=== PATIENT | male | born 1940 | race Caucasian/White ===

== ENCOUNTER → 2022-11-25 | Outpatient (CLI) | payer OTHER | END | disposition home or self-care (01) | LOC: PLD 07:36 → LAB SHORT 07:36 | DX: C44.712 Basal cell carcinoma of skin of right lower limb, including hip (principal); C44.719 Basal cell carcinoma of skin of left lower limb, including hip; C44.319 Basal cell carcinoma of skin of other parts of face | CPT/HCPCS: 88305 ==

== ENCOUNTER → 2024-09-22 | Outpatient (CLI) | payer OTHER ==
[2024-09-22 12:55] LABS: BASOPHILS ABSOLUTE AUTO 0.05 K/mm3 (0.00-0.23); BASOPHILS PERCENT AUTO 1 % (0-2); EOSINOPHILS PERCENT AUTO 2 % (0-6); Hematocrit 43.1 % (37.0-53.0); Hemoglobin 14.5 g/dL (13.5-17.5); IMMATURE GRAN ABSOLUTE AUTO 0.01 K/mm3 (0.00-0.10); IMMATURE GRAN PERCENT AUTO 0 % (0-1); LYMPHOCYTES ABSOLUTE AUTO 0.64 K/mm3 (0.84-5.20); LYMPHOCYTES PERCENT AUTO 10 % (21-46); MONOCYTES ABSOLUTE AUTO 0.56 K/mm3 (0.16-1.47); MONOCYTES PERCENT AUTO 9 % (4-13); Mean Corpuscular HGB 32.2 pg (26.0-34.0); Mean Corpuscular HGB Conc 33.6 g/dL (31.5-36.5); Mean Corpuscular Volume 96 fL (80-100); Mean Platelet Volume 10.3 fL (9.1-12.4); NEUTROPHILS ABSOLUTE AUTO 4.77 K/mm3 (1.96-9.15); NEUTROPHILS PERCENT AUTO 78 % (41-73); Platelet Count 150 K/mm3 (150-400); RDW Standard Deviation 48.9 fL (35.1-46.3); Red Blood Cell Count 4.51 M/mm3 (4.30-5.90); White Blood Cell Count 6.13 K/mm3 (4.00-11.30)
[2024-09-22 13:04] LABS: Albumin, Blood 3.1 g/dL (3.4-5.0); Albumin/Globulin Ratio 0.9 (0.8-1.8); Bilirubin, Total 1.8 mg/dL (0.1-1.0); Bun/Creatinine Ratio 20.4 (12.0-20.0); Calcium, Blood 8.6 mg/dL (8.5-10.1); Creatinine, Blood 0.93 mg/dL (0.60-1.20); Globulin, Blood 3.4 g/dL (2.2-4.0); Potassium, Blood 4.4 mmol/L (3.5-5.5); Total Protein, Blood 6.5 g/dL (6.4-8.2)
== END ==
LOC: LAB SHORT 12:51 → LAB 12:51
PROVIDERS: Physician Assistant
DX: R06.02 Shortness of breath (principal)
CPT/HCPCS: 80053; 83880; 85025

== ENCOUNTER 2024-09-24 14:50 | Emergency (ER) | payer OTHER ==
[~2024-09-24] VITALS: Ht 177.8 cm; Wt 81.7 kg
[2024-09-24 15:57] LABS: BASOPHILS ABSOLUTE AUTO 0.04 K/mm3 (0.00-0.23); BASOPHILS PERCENT AUTO 1 % (0-2); EOSINOPHILS ABSOLUTE AUTO 0.02 K/mm3 (0.00-0.68); EOSINOPHILS PERCENT AUTO 0 % (0-6); Hematocrit 45.2 % (37.0-53.0); Hemoglobin 15.4 g/dL (13.5-17.5); IMMATURE GRAN ABSOLUTE AUTO 0.02 K/mm3 (0.00-0.10); IMMATURE GRAN PERCENT AUTO 0 % (0-1); LYMPHOCYTES ABSOLUTE AUTO 0.73 K/mm3 (0.84-5.20); LYMPHOCYTES PERCENT AUTO 11 % (21-46); MONOCYTES ABSOLUTE AUTO 0.77 K/mm3 (0.16-1.47); MONOCYTES PERCENT AUTO 11 % (4-13); Mean Corpuscular HGB 32.9 pg (26.0-34.0); Mean Corpuscular HGB Conc 34.1 g/dL (31.5-36.5); Mean Corpuscular Volume 97 fL (80-100); Mean Platelet Volume 10.5 fL (9.1-12.4); NEUTROPHILS ABSOLUTE AUTO 5.28 K/mm3 (1.96-9.15); NEUTROPHILS PERCENT AUTO 77 % (41-73); Platelet Count 168 K/mm3 (150-400); RDW Coefficient Variation 14.1 % (11.7-14.2); RDW Standard Deviation 49.9 fL (35.1-46.3); Red Blood Cell Count 4.68 M/mm3 (4.30-5.90); White Blood Cell Count 6.86 K/mm3 (4.00-11.30)
[2024-09-24] MEDS ORDERED: CefTRIAXone Sodium 1,000 MG in NS 100 ML IV ONE (16:00)
[2024-09-24 16:30] LABS: Albumin, Blood 3.1 g/dL (3.4-5.0); Albumin/Globulin Ratio 0.9 (0.8-1.8); Bilirubin, Total 1.9 mg/dL (0.1-1.0); Bun/Creatinine Ratio 29.3 (12.0-20.0); Calcium, Blood 8.9 mg/dL (8.5-10.1); Creatinine, Blood 0.99 mg/dL (0.60-1.20); Globulin, Blood 3.4 g/dL (2.2-4.0); Potassium, Blood 4.7 mmol/L (3.5-5.5); Total Protein, Blood 6.5 g/dL (6.4-8.2)
[2024-09-24 16:31] LABS: Source, Urine Clean Catch
[2024-09-24 16:44] LABS: Appearance, Urine Clear (Clear); Bilirubin, Urine Neg (Neg); Blood, Urine 1+ (Neg); Color, Urine Yellow (P-Yellow); Glucose Qualitative, Urine Neg (Neg); Ketones, Urine Neg (Neg); Leukocyte Esterase, Urine Neg (Neg); Nitrite, Urine Neg (Neg); Protein, Urine 2+ (Neg); Specific Gravity, Urine 1.015 (1.003-1.022); Urobilinogen, Urine NORM (Normal)
[2024-09-24 16:48] LABS: Influenza A, PCR NEGATIVE (NEGATIVE); Influenza B, PCR NEGATIVE (NEGATIVE); Resp Syncytial Virus, PCR NEGATIVE (NEGATIVE); SARS-Cov-2 (COVID-19) PCR, MMC NEGATIVE (NEGATIVE)
[2024-09-24 16:52] LABS: Mucus Light (0-Heavy); White Blood Cells, Urine 0-2 /hpf (0-5)
[2024-09-24 16:53] LABS: Bacteria Few /hpf; Hyaline Casts 0-2 /lpf (0-2); Squamous Epithelial Cells Rare /hpf (Few)
[2024-09-24 20:37] VITALS: BP 122/93
== END 2024-09-24 20:38 | disposition home or self-care (01) ==
LOC: ER 14:50
PROVIDERS: Student in an Organized Health Care Education/Training Program
DX: R53.83 Other fatigue (principal); R06.00 Dyspnea, unspecified; R06.2 Wheezing; I50.9 Heart failure, unspecified; Z79.02 Long term (current) use of antithrombotics/antiplatelets
CPT/HCPCS: 0241U; 36415; 71046; 71260; 80053; 81001; 83605; 83690; 83880; 85025; 85379; 87040; 93005; 93010; 96365-59; 99285-25; J0696; Q9967

== ENCOUNTER 2024-09-27 15:12 | Inpatient (IN) | payer OTHER ==
[~2024-09-27] VITALS: Ht 177.8 cm; Wt 97.8 kg
[2024-09-27] MEDS ORDERED: FLU VACC TS2024-25(6MOS UP)/PF 45 MCG/0.5 ML SYRINGE IM SCH (16:45)
[2024-09-27 17:00] VITALS: BP 108/89
[2024-09-27] MEDS ORDERED: Carvedilol 3.125 MG Tab PO SCH (17:00)
[2024-09-27] MEDS ORDERED: Bumetanide 0.25 MG/ML 4ML ViaL IV SCH (17:00)
[2024-09-27] MEDS ORDERED: ASPI81CH PO ×2 (17:26)
[2024-09-27] MEDS ORDERED: ATORVASTATIN CA40 M1 PO ×2 (17:26)
[2024-09-27] MEDS ORDERED: OMEP20ER PO ×2 (17:28)
[2024-09-27] MEDS ORDERED: CLOP75 PO ×2 (17:29)
[2024-09-27] MEDS ORDERED: CARV3.125 PO ×2 (17:30)
[2024-09-27 18:09] LABS: Anion Gap 13 mmol/L (3-11); Blood Urea Nitrogen 40 mg/dL (8-24); Bun/Creatinine Ratio 34.2 (12.0-20.0); CO2, Blood 27 mmol/L (21-32); Calcium, Blood 8.8 mg/dL (8.5-10.1); Chloride, Blood 95 mmol/L (98-108); Creatinine, Blood 1.17 mg/dL (0.60-1.20); Glomerular Filtration Rate 61 (60-); Glucose, Blood 138 mg/dL (70-99); Magnesium, Blood 1.8 mg/dL (1.6-2.4); Phosphorus, Blood 4.3 mg/dL (2.5-4.9); Potassium, Blood 4.2 mmol/L (3.5-5.5); Sodium, Blood 131 mmol/L (136-145)
--- NOTE | 2024-09-27 18:32 | NUR ---
PT ARRIVED TO ROOM AOX4 AND COOPERATIVE OF CARE. NO DISTRESS NOTED JUST SOB DUE TO FLUID OVERLOAD. PT WAS SETTLED INTO BED AND ORIENTED TO ROOM. NO DISTRESS NOTED AND CALL LIGHT IN IN REACH WILL CONTINUE TO MONITOR.
[2024-09-27 19:20] VITALS: BP 109/84
[2024-09-27] MEDS ORDERED: Sacubitril/Valsartan 49 MG/51 MG Tab PO SCH (21:00)
--- NOTE | 2024-09-28 03:35 | NUR ---
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 ADMITTED FOR CHF, FLUID OVERLOAD. NO DISTRESS T/O SHIFT. MILD DYSPNEA NOTED AT REST. SATS ABOVE 90% ON RA. PT INDEPENDENT WITH BED MOBILITY AND CARES IN ROOM. PT UP TO CHAIR PERIODICALLY T/O SHIFT FOR COMFORT. DENIES CP / CHEST PRESSURE. CALL LIGHT IN REACH. BED IN LOWEST POSITION. CARES ONGOING ORDERED.
[2024-09-28 04:06] VITALS: BP 109/88
[2024-09-28 06:10] LABS: BASOPHILS ABSOLUTE AUTO 0.02 K/mm3 (0.00-0.23); BASOPHILS PERCENT AUTO 0 % (0-2); EOSINOPHILS ABSOLUTE AUTO 0.01 K/mm3 (0.00-0.68); EOSINOPHILS PERCENT AUTO 0 % (0-6); Hemoglobin 14.8 g/dL (13.5-17.5); IMMATURE GRAN ABSOLUTE AUTO 0.02 K/mm3 (0.00-0.10); IMMATURE GRAN PERCENT AUTO 0 % (0-1); LYMPHOCYTES ABSOLUTE AUTO 0.61 K/mm3 (0.84-5.20); LYMPHOCYTES PERCENT AUTO 9 % (21-46); MONOCYTES ABSOLUTE AUTO 0.77 K/mm3 (0.16-1.47); MONOCYTES PERCENT AUTO 12 % (4-13); Mean Corpuscular HGB Conc 34.4 g/dL (31.5-36.5); Mean Corpuscular Volume 96 fL (80-100); Mean Platelet Volume 10.4 fL (9.1-12.4); NEUTROPHILS ABSOLUTE AUTO 5.23 K/mm3 (1.96-9.15); NEUTROPHILS PERCENT AUTO 78 % (41-73); Platelet Count 142 K/mm3 (150-400); RDW Coefficient Variation 14.2 % (11.7-14.2); RDW Standard Deviation 49.7 fL (35.1-46.3); Red Blood Cell Count 4.49 M/mm3 (4.30-5.90); White Blood Cell Count 6.66 K/mm3 (4.00-11.30)
[2024-09-28 06:38] LABS: Albumin, Blood 3.2 g/dL (3.4-5.0); Albumin/Globulin Ratio 1.1 (0.8-1.8); Bun/Creatinine Ratio 38.1 (12.0-20.0); Calcium, Blood 8.7 mg/dL (8.5-10.1); Creatinine, Blood 1.18 mg/dL (0.60-1.20); Magnesium, Blood 2.1 mg/dL (1.6-2.4); Phosphorus, Blood 4.2 mg/dL (2.5-4.9); Total Protein, Blood 6.2 g/dL (6.4-8.2)
[2024-09-28 07:29] VITALS: BP 108/82
[2024-09-28] MEDS ORDERED: Atorvastatin 40 MG Tab PO SCH (09:00)
[2024-09-28] MEDS ORDERED: Clopidogrel Bisulfate 75 MG Tab PO SCH (09:00)
[2024-09-28] MEDS ORDERED: Enoxaparin 40 MG/0.4 ML SYR SC SCH (09:00)
[2024-09-28] MEDS ORDERED: Pantoprazole Sodium 40 MG Tab PO ONE (11:25)
[2024-09-28 15:30] VITALS: BP 96/60
[2024-09-28] MEDS ORDERED: FUROSEMIDE40 MG PO ×2 (16:25)
[2024-09-28] MEDS ORDERED: POTCHL20ER PO ×2 (16:26)
[2024-09-28] MEDS ORDERED: ENTRESTO 24 MG1 EAC3 PO ×2 (16:29)
--- NOTE | 2024-09-28 17:01 | NUR ---
Pt. is sitting up in a chair when he welcomes my visit. Pt. is pleasant but displays evidence of being depressed. Facilitate a life review and in the process establish rapport. Pt. displays evidence of trust and a lightened mood. 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 Listen with interest and empathy, we also considered matters of family. Prayed with the Pt. and also let him know that a Eucharistic volunteer will be on the floor tomorrow. Pt. verbalized gratitude for the spiritual care visit and welcomed this organ tuner to return.
[2024-09-28 18:33] VITALS: BP 104/87
[2024-09-28 19:06] VITALS: BP 143/107
--- NOTE | 2024-09-28 19:30 | NUR ---
SHIFT SUMMARY PATIENT UP INDEPENDENT IN ROOM TODAY, SHORTNESS OF BREATH IS DECREASING HE CONTINUES TO GET DIURESED. THIS EVENEING BP WAS 96/60, UPON RECHECK WAS 104/70S, HR 70S, JENNIFER BOOTHE NOTIFIED, ORDER TO HOLD CARVEDILOL, GIVE BUMEX. PATIENT NOTIFIED. HE IS UP IN CHAIR AT END OF SHIFT TODAY IN NO APPARENT DISTRESS, 95% ON ROOM AIR.
[2024-09-29 03:25] VITALS: BP 114/83
--- NOTE | 2024-09-29 04:06 | NUR ---
SHIFT SUMMARY PATIENT HAD NO ACUTE CHANGES. ALERT, ORIENTED, AND SBA. DENIES CHEST PAIN, SOB, AND N/V. VSS/AFEBRILE. PIV INTACT. COOPERATIVE WITH CARE. CALL LIGHT IN REACH. BED IN LOWEST POSITION . WILL CONTINUE TO MONITOR UNTIL DAY SHIFT NURSE ASSUMES CARE.
[2024-09-29] MEDS ORDERED: Pantoprazole Sodium 40 MG Tab PO SCH (06:00)
[2024-09-29 07:34] VITALS: BP 105/82
[2024-09-29 09:52] VITALS: BP 103/81
[2024-09-29 12:17] LABS: Anion Gap 12 mmol/L (3-11); Blood Urea Nitrogen 48 mg/dL (8-24); Bun/Creatinine Ratio 37.5 (12.0-20.0); CO2, Blood 25 mmol/L (21-32); Calcium, Blood 8.4 mg/dL (8.5-10.1); Chloride, Blood 95 mmol/L (98-108); Creatinine, Blood 1.28 mg/dL (0.60-1.20); Glomerular Filtration Rate 55 (60-); Glucose, Blood 142 mg/dL (70-99); Phosphorus, Blood 4.1 mg/dL (2.5-4.9); Potassium, Blood 4.3 mmol/L (3.5-5.5); Sodium, Blood 128 mmol/L (136-145)
[2024-09-29 13:31] VITALS: BP 87/77
[2024-09-29 13:34] VITALS: BP 95/74
[2024-09-29] MEDS ORDERED: BUME1 PO ×2 (14:37)
[2024-09-29] MEDS ORDERED: METO25ER PO ×2 (14:39)
--- NOTE | 2024-09-29 15:07 | NUR ---
DISCHARGE REVIEWED WITH PT. HE VERBALIZED UNDERSTANDING MEDS AND INST. IV PULLED BY AIDE. PT WHEELED TO DOOR BY YANICK AT [id number]
== END 2024-09-29 15:06 | disposition home or self-care (01) | DRG 291 ==
LOC: MEDS 15:12
PROVIDERS: Family Medicine; ADMIT Family Medicine
DX: I11.0 Hypertensive heart disease with heart failure (principal); I50.23 Acute on chronic systolic (congestive) heart failure; H02.102 Unspecified ectropion of right lower eyelid; I25.10 Atherosclerotic heart disease of native coronary artery without angina pectoris; K21.9 Gastro-esophageal reflux disease without esophagitis; E78.5 Hyperlipidemia, unspecified; Z85.46 Personal history of malignant neoplasm of prostate; I35.0 Nonrheumatic aortic (valve) stenosis; Z66 Do not resuscitate
CPT/HCPCS: 36415; 71045; 80053; 80069; 83735; 83880; 84100; 85025; A9270; J1650